=== PATIENT | female | born 1965 | race Caucasian/White ===

== ENCOUNTER 2020-08-09 07:04 | Emergency (ER) | payer MEDICAID, SELFPAY ==
--- NOTE | ~2020-08-09 | XR_ITS ---
EXAMINATION: XR CHEST CLINICAL INFORMATION: Chest pain COMPARISON: [facility] from 2011 TECHNIQUE: AP upright portable view of the chest was obtained. Multiple ECG leads overlie the thorax. FINDINGS: Stable heart and mediastinum remain within normal limits for technique. The patient is slightly rotated. No pulmonary edema. Increased reticular lung markings predominate centrally. These are chronic favoring airways disease. No focal pneumonia. Consolidation noted at the left base on 09/05/2010 has resolved. No effusion or pneumothorax. Normal gas pattern. No acute osseous finding. XR/XR chest 1V IMPRESSION: Chronic central increase in lung markings favoring airways disease.
[2020-08-09 07:07] VITALS: BP 131/79; PULSE 83; RESP 22; TEMP 36.7; O2SAT 97; BMI 32.2
--- NOTE | 2020-08-09 07:08 | ED.CHESTPAIN ---
HPI - Chest Pain General Chief Complaint: Dyspnea Stated Complaint: CHEST PAIN Time Seen by Provider: 08/09/20 07:08 Source: patient Mode of arrival: ambulatory Limitations: no limitations History of Present Illness MD complaint: chest pain Pertinent past history: asthma Onset (ago): day(s) (1) Timing of current episode: constant and increasing Prior episodes: No Onset: during rest and during exertion Pain location: substernal and left chest Pain radiation: jaw/teeth Severity: severe Quality: tightness Relieving factors: nothing Exacerbating factors: exertion and movement Associated symptoms: dyspnea Treatment prior to arrival: other (tried bronchodilator without relief) Related Data Previous Rx's Medication Instructions Recorded doxycycline hyclate 100 mg PO BID 7 Days #14 cap 08/09/20 hydrocodone-homatropine 5 ml PO Q6H PRN #60 ml 08/09/20 prednisone 40 mg PO DAILY 5 Days #10 tab 08/09/20 Allergies Allergy/AdvReac Type Severity Reaction Status Date / Time metronidazole [From FLAGYL] Allergy Unknown NAUSEA & Verified 08/09/20 07:26 VOMITING Penicillins [PENICILLINS] Allergy Unknown HIVES Verified 08/09/20 07:26 Sulfa (Sulfonamide Allergy Unknown SWELLING Verified 08/09/20 07:26 Antibiotics) [SULFA (SULFONAMIDE ANTIBIOTICS)] From [facility] Allergy Mild ITCHING Uncoded 01/15/20 17:28 From FLAGYL Allergy Unknown NAUSEA & Uncoded 01/15/20 17:28 VOMITING Review of Systems Review of Systems: Constitutional : No Weight loss, No Fever, No Chills ENT/Mouth : No sore throat, No Rhinorrhea Eyes: No Eye Pain, No Swelling Cardiovascular : pos Chest Pain, pos SOB, pos Dyspnea on Exertion, No Orthopnea, No Edema, No Palpitations Respiratory : No Cough, No Sputum Gastrointestinal : no Nausea, No Vomiting, No Diarrhea, No abdominal Pain, No Hematochezia, No Melena Genitourinary : No Dysuria, No Urinary Frequency Musculoskeletal : No joint pain, No Myalgias, No Joint Swelling Skin : No Skin Lesions, No rash Neuro : No Weakness, No Numbness, No Dizziness, No Headache Psych : No Anxiety/Panic, No Depression Heme/Lymph: No Bruising, No Lymphadenopathy Endocrine : No Polyuria, No Polydipsia All other systems reviewed and are negative [facility] Past Medical History Attestation statement: The following information was validated with the patient. Medical History Asthma History of cardiac arrest HTN (hypertension) Hyperlipidemia Social History Social History (Updated 08/09/20 @ 07:14 by Elida Saul DO) Alcohol intake: never Smoking Status: Never smoker Use of substances other than those prescribed or required for medical reasons: No Advance Directives: No Advance Directives Information Provided: Yes Physical Exam Vital Signs: Vital Signs: Last Vital Signs Temp 98.1 F 08/09/20 07:07 Pulse 80 08/09/20 08:44 Resp 22 H 08/09/20 07:07 BP 131/79 08/09/20 07:07 Pulse Ox 98 08/09/20 08:44 Body Mass Index 32.2 Appearance: Alert. Oriented X3. Anxious, mild acute distress. Eyes: Pupils equal, round and reactive to light. ENT: Pharynx normal. Neck: Normal inspection. Neck supple. CVS: Normal heart rate and rhythm. Pulses normal. Respiratory: Mild respiratory distress tachypnea and retractions. Breath sounds decreased wheezing throught Abdomen: Soft and nontender. Skin: Skin warm and dry. Normal skin color. Normal skin turgor. Extremities: No lower extremity edema. No calf ttp Neuro: Oriented X 3. No motor deficit. No sensory deficit. Course Course Course Narrative: patient improving on neb treatment at this time patient more improved after treatments, still appears anxious, initial trop negative along with ddimer is negative, will repeat trop at 10am, if still improved stable for DC ativan for anxiety delta troponin negative, clear lungs no hypoxia stable for DC will DC home with steroids and antibiotics MDM - Chest Pain MDM Narrative Medical decision making narrative: 55 yo female with asthma, HTN, HPL here with 1 day worsening dyspnea wheezing and chest tightness - at this time she will need IV steroids, magnesium as well as albuterol 5mg neb - chest tightness could be due to bronchospasm but given age will need troponin and ddimer, dispo per results and findings. Lab Data Result diagrams: 08/09/20 07:19 08/09/20 07:19 Labs: Lab Results 08/09/20 08/09/20 08/09/20 Range/Units 07:19 07:19 07:19 WBC 4.9 (4.8-10.8) X10*3/uL RBC 4.33 (4.20-5.50) X10*6/uL Hgb 13.3 (12.0-16.0) g/dl Hct 39.1 (37-47) % MCV 90.3 (80-98) fL MCH 30.7 (27.0-33.0) pg MCHC 34.0 (31.0-35.0) g/dl RDW 12.3 (11.0-16.0) % Plt Count 252 (160-400) X10*3/uL MPV 8.6 L (9.4-12.3) fL Immature Gran % (Auto) 0.2 (0.0-0.4) % Neut % (Auto) 51.2 (45-73) % Lymph % (Auto) 31.0 (20-40) % Evangeline % (Auto) 12.7 H (2-11) % Eos % (Auto) 4.5 H (0-4) % Baso % (Auto) 0.4 (0-2) % Lymph # (Auto) 1.5 (1.2-4.9) X10*3/uL Evangeline # (Auto) 0.6 (0.1-1.2) X10*3/uL Eos # (Auto) 0.2 (0.0-0.4) X10*3/uL Baso # (Auto) 0.0 (0.0-0.2) X10*3/uL Abs Immat Gran (auto) 0.01 (0.00-0.03) X10*3/uL Absolute Neuts (auto) 2.5 (2.0-8.3) X10*3/uL Absolute Nucleated RBC 0.000 (0.0-0.012) X10*3/uL Nucleated RBC % (auto) 0.0 (0.0-0.2) /100WBC PT 11.2 (10.8-13.0) SEC INR 0.9 (0.9-1.1) APTT 28.9 (24.1-38.0) SEC D-Dimer < 200 NG/ML Sodium 140 (135-145) mmol/L Potassium 4.3 (3.3-5.1) mmol/L Chloride 106 (96-108) mmol/L Carbon Dioxide 22 (22-29) mmol/L Anion Gap 16 (12-20) BUN 25 H (9-16) mg/dL Creatinine 0.80 (0.5-1.4) mg/dL Estim Creat Clear Calc 70.9 Estimated GFR > 60 Random Glucose 102 (60-115) mg/dL Calcium 9.4 (8.4-10.2) mg/dL Magnesium 2.3 (1.6-2.6) mg/dL Total Bilirubin 0.8 (0.0-1.0) mg/dL Direct Bilirubin 0.3 (0.0-0.5) mg/dL AST 24 (5-31) U/L ALT 21 (0-31) U/L Alkaline Phosphatase 63 (39-117) U/L Troponin I High Sens (<3.5-17.0) ng/L B-Natriuretic Peptide (<100) pg/mL Total Protein 7.1 (6.5-8.0) g/dL Albumin 4.5 (3.5-5.0) g/dL Lipase 51 (8-78) U/L 08/09/20 08/09/20 Range/Units 07:19 10:04 WBC (4.8-10.8) X10*3/uL RBC (4.20-5.50) X10*6/uL Hgb (12.0-16.0) g/dl Hct (37-47) % MCV (80-98) fL MCH (27.0-33.0) pg MCHC (31.0-35.0) g/dl RDW (11.0-16.0) % Plt Count (160-400) X10*3/uL MPV (9.4-12.3) fL Immature Gran % (Auto) (0.0-0.4) % Neut % (Auto) (45-73) % Lymph % (Auto) (20-40) % Evangeline % (Auto) (2-11) % Eos % (Auto) (0-4) % Baso % (Auto) (0-2) % Lymph # (Auto) (1.2-4.9) X10*3/uL Evangeline # (Auto) (0.1-1.2) X10*3/uL Eos # (Auto) (0.0-0.4) X10*3/uL Baso # (Auto) (0.0-0.2) X10*3/uL Abs Immat Gran (auto) (0.00-0.03) X10*3/uL Absolute Neuts (auto) (2.0-8.3) X10*3/uL Absolute Nucleated RBC (0.0-0.012) X10*3/uL Nucleated RBC % (auto) (0.0-0.2) /100WBC PT (10.8-13.0) SEC INR (0.9-1.1) APTT (24.1-38.0) SEC D-Dimer NG/ML Sodium (135-145) mmol/L Potassium (3.3-5.1) mmol/L Chloride (96-108) mmol/L Carbon Dioxide (22-29) mmol/L Anion Gap (12-20) BUN (9-16) mg/dL Creatinine (0.5-1.4) mg/dL Estim Creat Clear Calc Estimated GFR Random Glucose (60-115) mg/dL Calcium (8.4-10.2) mg/dL Magnesium (1.6-2.6) mg/dL Total Bilirubin (0.0-1.0) mg/dL Direct Bilirubin (0.0-0.5) mg/dL AST (5-31) U/L ALT (0-31) U/L Alkaline Phosphatase (39-117) U/L Troponin I High Sens < 3.5 < 3.5 (<3.5-17.0) ng/L B-Natriuretic Peptide 43 (<100) pg/mL Total Protein (6.5-8.0) g/dL Albumin (3.5-5.0) g/dL Lipase (8-78) U/L ECG Data ECG #1: Attestation: I personally reviewed and interpreted this ECG as follows: ECG interpretation date: 08/09/20 ECG interpretation time: 07:24 Interpretation: Rate: 84 Rhythm: NSR Ava: normal Normal P waves. Normal MITCH. Normal QRS complex. ST T wave : no ASHVIN, nonspecific qTC: normal prior studies: artifact noted The study has been interpreted contemporaneously by me. . Discharge Plan Discharge Clinical Impression: Asthma with exacerbation, Chest pain Patient Disposition: Home, Self-Care Instructions: Chest Pain (ED), Asthma (ED) Additional Instructions: return to ED for any worsening symptoms or concerns Prescriptions: New doxycycline hyclate 100 mg capsule 100 mg PO BID 7 Days Qty: 14 RF: 0 prednisone 20 mg tablet 40 mg PO DAILY 5 Days Qty: 10 RF: 0 hydrocodone-homatropine 5-1.5 mg/5 mL (5 mL) syrup 5 ml PO Q6H PRN (Reason: cough) Qty: 60 RF: 0 Referrals: Janneth Gutiérrez MD [Primary Care Provider] - 2 days (if not better)
--- NOTE | 2020-08-09 07:12 | ECG_ITS ---
Test Reason : CP Blood Pressure : / mmHG Vent. Rate : 084 BPM Atrial Rate : 084 BPM P-R Int : 178 ms QRS Dur : 090 ms QT Int : 368 ms P-R-T Axes : 067 047 038 degrees QTc Int : 434 ms Artifact in tracing Normal sinus rhythm with sinus arrhythmia Possible Left atrial enlargement Borderline ECG When compared with ECG of 02-SEP-2010 07:26, No significant change was found Referred By: Elida Saul Electronically Signed By:MERY JOYCE
[2020-08-09] MEDS: methylPREDNISolone Sod Succ 125 MG/2 ML VIAL IVPUSH (07:22)
[2020-08-09] MEDS: Magnesium Sulfate/H2O 2 GM/50 ML PIGGYBACK IV (07:22)
[2020-08-09 07:24] LABS: MANUAL DIFF FLAG NO
[2020-08-09 07:27] LABS: Basophils Percent Auto 0.4 % (0-2); Eosinophils Absolute Auto 0.2 X10*3/uL (0.0-0.4); Eosinophils Percent Auto 4.5 % (0-4); Hematocrit 39.1 % (37-47); Hemoglobin 13.3 g/dl (12.0-16.0); Imm Gran Abs Auto 0.01 X10*3/uL (0.00-0.03); Imm Gran Pct Auto 0.2 % (0.0-0.4); Lymphocytes Absolute Auto 1.5 X10*3/uL (1.2-4.9); Mean Corpuscular Hemoglobin 30.7 pg (27.0-33.0); Mean Corpuscular Volume 90.3 fL (80-98); Mean Platelet Volume 8.6 fL (9.4-12.3); Monocytes Absolute Auto 0.6 X10*3/uL (0.1-1.2); Monocytes Percent Auto 12.7 % (2-11); Neutrophils Absolute Auto 2.5 X10*3/uL (2.0-8.3); Neutrophils Percent Auto 51.2 % (45-73); Platelet Count 252 X10*3/uL (160-400); Red Blood Count 4.33 X10*6/uL (4.20-5.50); Red Cell Distribution Width 12.3 % (11.0-16.0); White Blood Count 4.9 X10*3/uL (4.8-10.8)
[2020-08-09 07:33] LABS: INTERNATIONAL NORM RATIO 0.9 (0.9-1.1); Prothrombin Time 11.2 SEC (10.8-13.0)
[2020-08-09 07:36] LABS: Partial Thromboplastin Time 28.9 SEC (24.1-38.0)
[2020-08-09 07:41] LABS: D Dimer < 200 NG/ML
[2020-08-09] MEDS: Albuterol Sulfate (0.083%) 2.5 MG/3 ML VIAL.NEB 5 MG INHALE (07:43)
[2020-08-09 07:47] VITALS: PULSE 71; O2SAT 97
[2020-08-09 08:00] LABS: Alanine Aminotransferase 21 U/L (0-31); Albumin Level 4.5 g/dL (3.5-5.0); Alkaline Phosphatase 63 U/L (39-117); Anion Gap 16 (12-20); Aspartate Amino Transferase 24 U/L (5-31); Bilirubin Direct 0.3 mg/dL (0.0-0.5); Bilirubin Total 0.8 mg/dL (0.0-1.0); Blood Urea Nitrogen 25 mg/dL (9-16); Calcium 9.4 mg/dL (8.4-10.2); Carbon Dioxide 22 mmol/L (22-29); Chloride 106 mmol/L (96-108); Creatinine Clr Calc Pharmacy 70.9; Estimated Glomerular Filt Rate > 60; Glucose Random 102 mg/dL (60-115); Lipase 51 U/L (8-78); Magnesium 2.3 mg/dL (1.6-2.6); Potassium 4.3 mmol/L (3.3-5.1); Sodium 140 mmol/L (135-145); Total Protein 7.1 g/dL (6.5-8.0)
[2020-08-09 08:06] LABS: B Type Natriuretic Peptide 43 pg/mL (<100); Troponin-I High Sensitivity < 3.5 ng/L (<3.5-17.0)
[2020-08-09] MEDS: LORazepam 2 MG/ML VIAL 1 MG IVPUSH (08:36)
--- NOTE | 2020-08-09 08:43 | PC.NURSE ---
pt appearing much more comfortable, very slight wheezing noted, respirations even and unlabored. medicated per emar, needs repeat trop.
[2020-08-09 08:44] VITALS: PULSE 80; O2SAT 98
--- NOTE | 2020-08-09 10:09 | PC.NURSE ---
repeat trop drawn and sent, pt sts feeling much better at this time, rr even/unlabored.
[2020-08-09 10:40] LABS: Troponin-I High Sensitivity < 3.5 ng/L (<3.5-17.0)
== END 2020-08-09 11:09 | disposition home or self-care (01) ==
PROVIDERS: Emergency Provider Emergency Medicine; PCP Internal Medicine
DX: R07.9 Chest pain, unspecified (principal); J45.901 Unspecified asthma with (acute) exacerbation; I10 Essential (primary) hypertension; E78.5 Hyperlipidemia, unspecified; Z86.74 Personal history of sudden cardiac arrest
CPT/HCPCS: 36415; 71045; 80048; 80076; 83690; 83735; 83880; 84484; 85025; 85379; 85610; 85730; 93005; 94640; 94644; 96365; 96375; 99284; J2060; J2930; J3475

== ENCOUNTER 2022-09-20 20:39 | Emergency (ER) | payer OTHER, SELFPAY ==
--- NOTE | ~2022-09-20 | XR_ITS ---
EXAMINATION: XR FEMUR, RIGHT XR KNEE, RIGHT CLINICAL INFORMATION: Kidneys by a horse. COMPARISON: None available. TECHNIQUE: AP and lateral views of the right femur were obtained. AP, lateral, and both oblique views of the right knee were obtained. FINDINGS: Bones and soft tissues are normal. No fracture or joint effusion. Alignment is anatomic. Joint spaces are well maintained. No abnormal soft tissue calcification. XR/XR knee RT 4V IMPRESSION: Normal right knee and femur radiographs.
--- NOTE | ~2022-09-20 | XR_ITS ---
EXAMINATION: XR FEMUR, RIGHT XR KNEE, RIGHT CLINICAL INFORMATION: Kidneys by a horse. COMPARISON: None available. TECHNIQUE: AP and lateral views of the right femur were obtained. AP, lateral, and both oblique views of the right knee were obtained. FINDINGS: Bones and soft tissues are normal. No fracture or joint effusion. Alignment is anatomic. Joint spaces are well maintained. No abnormal soft tissue calcification. XR/XR femur RT 2V IMPRESSION: Normal right knee and femur radiographs.
[2022-09-20 20:49] VITALS: BP 138/77; PULSE 72; RESP 18; TEMP 36.6; O2SAT 98; BMI 25.8
--- NOTE | 2022-09-20 20:51 | ED.LOWEXIN ---
HPI - Extremity Injury (Lower) General Chief Complaint: Extremity Injury, Lower Stated Complaint: kicked by a horse, R femur inj Time Seen by Provider: 09/20/22 23:04 Source: patient Mode of arrival: ambulatory Limitations: no limitations History of Present Illness HPI Narrative: 57 year female with no significant past history presenting to the ED complaining of right thigh pain s/p being kicked by horse around 18:00 patient complaining of some swelling of the right quadriceps muscles able to ambulate with slight pain no other injuries Related Data Previous Rx's Medication Instructions Recorded doxycycline hyclate 100 mg capsule 100 mg PO BID 7 days #14 caps 08/09/20 hydrocodone-homatropine 5 mg-1.5 5 ml PO Q6H PRN cough #60 mL 08/09/20 mg/5 mL (5 mL) oral syrup prednisone 20 mg tablet 40 mg PO DAILY 5 days #10 tabs 08/09/20 ibuprofen 600 mg tablet 600 mg PO Q6H PRN fever or pain 09/20/22 #30 tabs Allergies Allergy/AdvReac Type Severity Reaction Status Date / Time metronidazole [From FLAGYL] Allergy Unknown NAUSEA & Verified 08/09/20 07:26 VOMITING Penicillins [PENICILLINS] Allergy Unknown HIVES Verified 08/09/20 07:26 Sulfa (Sulfonamide Allergy Unknown SWELLING Verified 08/09/20 07:26 Antibiotics) [SULFA (SULFONAMIDE ANTIBIOTICS)] From [facility] Allergy Mild ITCHING Uncoded 01/15/20 17:28 From FLAGYL Allergy Unknown NAUSEA & Uncoded 01/15/20 17:28 VOMITING Review of Systems Review of Systems: Yes all other systems are reviewed and are negative PMFSH Past Medical History Medical History Asthma History of cardiac arrest HTN (hypertension) Hyperlipidemia Social History Social History Alcohol intake: never Advance Directives: No Advance Directives Information Provided: Yes Physical Exam Vital Signs: Vital Signs: Last Vital Signs Temp 98 F 09/20/22 20:49 Pulse 72 09/20/22 20:49 Resp 18 09/20/22 20:49 BP 138/77 09/20/22 20:49 Pulse Ox 98 09/20/22 20:49 O2 Del Method Room Air 09/20/22 20:49 BMI result Body Mass Index 25.8 Extrem: Upper/lower leg/hip images: 1. Soft tissue swelling lateral aspect of right no neurovascular complaints swelling is soft no signs of compartment syndrome no hyperesthesia able to bend knee without significant pain Course Course Course Narrative: RME: 57 year female with no significant past history presenting to the ED complaining of right thigh pain s/p being kicked by horse around 18:00. Has been minimally ambulatory since the incident. Denies injury to other area Patient currently in wheelchair, unable to assess area in triage due to wearing jeans X-rays ordered Full HPI, ROS and PE to be performed by primary ED provider. Medical Decision Making Medical Decision Making [facility] Narrative: Patient's right thigh contusion x-ray negative clinically does not have significant fluid collection has small hematoma no signs of compartment syndrome will discharge patient home pain guanaco wrap was applied Discharge Plan Discharge Clinical Impression: Contusion of right leg Patient Disposition: Home, Self-Care Instructions: Contusion in Adults (ED) Additional Instructions: Your x-rays negative for any fracture Guanaco wrap for comfort Ibuprofen for pain Prescriptions: New ibuprofen 600 mg tablet 600 mg PO Q6H PRN (Reason: fever or pain) Qty: 30 0RF No Action doxycycline hyclate 100 mg capsule 100 mg PO BID 7 Days Qty: 14 0RF prednisone 20 mg tablet 40 mg PO DAILY 5 Days Qty: 10 0RF hydrocodone-homatropine 5-1.5 mg/5 mL (5 mL) syrup 5 ml PO Q6H PRN (Reason: cough) Qty: 60 0RF Interventions: ED Discharge Assessment Last Done: 09/20/22 23:28 Discharge Date/Time: 09/20/22 23:29
== END 2022-09-20 23:29 | disposition home or self-care (01) ==
PROVIDERS: Emergency Provider Internal Medicine; PCP Internal Medicine
DX: S70.11XA Contusion of right thigh, initial encounter (principal); W55.12XA Struck by horse, initial encounter; Y93.52 Activity, horseback riding; Y92.71 Barn as the place of occurrence of the external cause; Y99.9 Unspecified external cause status
CPT/HCPCS: 73552; 73564; 99282; 99283